=== PATIENT | female | born 1995 | race Caucasian/White ===

== ENCOUNTER 2018-12-09 06:46 | Observation (INO) | payer OTHER ==
[~2018-12-09] VITALS: Ht 177.8 cm; Wt 115.2 kg
[2018-12-09 07:42] LABS: AMPHETAMINE SCREEN, URINE Negative (Negative); BARBITURATE SCREEN, URINE Negative (Negative); BENZODIAZEPINE SCREEN, URINE Negative (Negative); CANNABINOID SCREEN, URINE Negative (Negative); COCAINE SCREEN, URINE Negative (Negative); METHADONE SCREEN, URINE Negative (Negative); OPIATE SCREEN, URINE Negative (Negative)
[2018-12-09 07:44] LABS: BASOPHILS # (AUTO) 0.04 x10^3/uL (0-0.1); BASOPHILS % (AUTO) 0 % (0-1); EOSINOPHILS # (AUTO) 0.25 x10^3/uL (0-0.4); EOSINOPHILS % (AUTO) 2 % (1-7); LYMPHOCYTES # (AUTO) 4.03 x10^3/uL (1-3.4); LYMPHOCYTES % (AUTO) 24 % (22-44); MD NO; MEAN CORPUSCULAR HEMOGLOBIN 25.6 pg (27.0-34.8); MEAN CORPUSCULAR HGB CONC 32.7 g/dL (32.4-35.8); MEAN CORPUSCULAR VOLUME 78.3 fL (80-100); MEAN PLATELET VOLUME 9.5 fL (7.4-10.4); MONOCYTES # (AUTO) 0.94 x10^3/uL (0.2-0.8); MONOCYTES % (AUTO) 6 % (2-9); NEUTROPHILS # (AUTO) 11.24 x10^3/uL (1.8-6.8); NEUTROPHILS % (AUTO) 68 % (42-75); PLATELET COUNT 270 x10^3/uL (130-400); RED BLOOD COUNT 5.39 x10^6/uL (3.82-5.3); RED CELL DISTRIBUTION WIDTH 13.9 % (9.6-15.2)
[2018-12-09 07:53] LABS: ALBUMIN 3.4 g/dL (3.4-5.0); ANION GAP 8 mmol/L (5-15); CALCIUM 8.7 mg/dL (8.5-10.1); CHLORIDE 106 mmol/L (98-107)
[2018-12-09 07:57] LABS: ACETAMINOPHEN < 2 mcg/mL (10-30); ALANINE AMINOTRANSFERASE 25 U/L (12-78); ALKALINE PHOSPHATASE 95 U/L (45-117); BILIRUBIN,TOTAL 0.3 mg/dL (0.2-1.0); CREATININE 0.77 mg/dL (0.55-1.02); SALICYLATE LEVEL < 1.7 mg/dL (2.8-20.0); TOTAL PROTEIN 7.4 g/dL (6.4-8.2)
[2018-12-09 08:19] LABS: MICROSCOPIC NOT IND
--- NOTE | 2018-12-09 08:20 | NUR ---
Pt moved to room 38. Assumed care of pt. Pt stated that she is SI and wants to overdose on medications. She stated that she has done this in the past. Pt is alert, oriented, with NAD. Pt is dressed in a gown. Sitter outside the room.
[2018-12-09 08:24] LABS: CULTURE INDICATED? NO
--- NOTE | 2018-12-09 08:58 | NUR ---
Pt given breakfast tray. Pt is appreciative. Sitter outside the room.
--- NOTE | 2018-12-09 09:56 | NUR ---
PT IS RESTING IN BED WITH EYES CLOSED, RESPIRATIONS EQUAL AND NON LABORED. NAD. SITTER OUTSIDE THE ROOM.
--- NOTE | 2018-12-09 10:11 | NUR ---
Chart faxed to [facility] at this time as patient is on a legal hold and self pay.
--- NOTE | 2018-12-09 10:40 | NUR ---
PT AMBULATED TO THE BATHROOM WITH STEADY GAIT.
--- NOTE | 2018-12-09 10:44 | NUR ---
PT GIVEN WATER TO DRINK. SITTER OUTSIDE THE ROOM.
[2018-12-09 11:08] LABS: FREE T4 (FREE THYROXINE) 0.89 ng/dL (0.76-1.46); THYROID STIMULATING HORMONE 1.72 mIU/L (0.358-3.740)
--- NOTE | 2018-12-09 11:41 | NUR ---
REPORT RECEIVED FROM ALIA WHITAKER. ASSUMED CARE OF PT. PT CURRENTLY DOZING ON BARBARA. NAD NOTED. SKIN PWD. RESP EVEN AND EQAUL. BELONGINGS ARE IN LOCKED LOCKER. GARAGE DOORS DOWN IN ROOM. SITTER AT DOORSIDE. PT DENIES ANY NEEDS AT THIS TIME. WILL CONT TO MONITOR PT.
--- NOTE | 2018-12-09 12:30 | NUR ---
PT CURRENTLY RESTING ON GURNEY. NAD NOTED. SKIN PWD. RESP EVEN AND EQUAL. PT DENIES PAIN/NEEDS. GARAGE DOORS DOWN IN ROOM. SITTER AT BEDSIDE.
--- NOTE | 2018-12-09 13:32 | NUR ---
PT PROVIDED WITH MEAL TRAY. PT ATTEMPTING TO GET [employer]OLD OF FRIEND WHO HAS HER INSURANCE INFORMATION. PT CALM AND COOPERATIVE AT THIS TIME. BELONGINGS IN LOCKED LOCKER. GARAGE DOORS DOWN IN ROOM. SITTER AT DOORSIDE.
[2018-12-09] MEDS ORDERED: LORazepam 1MG TABLET ONE (14:05)
--- NOTE | 2018-12-09 14:10 | NUR ---
PT SPOKE WITH GIRLFRIEND ON THE PHONE AND IS UPSET D/T GIRLFRIEND REPORTING A FINANCIAL ISSUE. PT MEDICATED ORDERED FOR ANXIETY. PT AO X 4. SKIN PWD. RESP EVEN ADN EQAUL. BELONGINGS IN LOCKED LOCKER. CALL LIGHT WITHIN REACH.
[2018-12-09] MEDS ORDERED: LORazepam 1MG TABLET PO PRN (14:30)
[2018-12-09 15:19] VITALS: BP 124/84
[2018-12-09 17:16] VITALS: BP 124/84
[2018-12-09] MEDS ORDERED: LORazepam 1MG TABLET PO ONE (19:00)
[2018-12-09 19:34] VITALS: BP 137/99
[2018-12-09] MEDS: FLUOXETINE HCL 20 MG CAPSULE PO SCH ×2 (21:00→21:32)
[2018-12-09] MEDS: OLANZAPINE 2.5 MG TABLET PO SCH ×2 (21:00→21:32)
[2018-12-10 05:32] LABS: ALANINE AMINOTRANSFERASE 27 U/L (12-78); ALBUMIN 3.6 g/dL (3.4-5.0); ANION GAP 8 mmol/L (5-15); CALCIUM 9.1 mg/dL (8.5-10.1); CHLORIDE 105 mmol/L (98-107); CREATININE 0.81 mg/dL (0.55-1.02)
[2018-12-10 05:34] LABS: MEAN CORPUSCULAR HEMOGLOBIN 26.5 pg (27.0-34.8); MEAN CORPUSCULAR HGB CONC 33.7 g/dL (32.4-35.8); MEAN CORPUSCULAR VOLUME 78.8 fL (80-100); RED BLOOD COUNT 5.48 x10^6/uL (3.82-5.3); RED CELL DISTRIBUTION WIDTH 13.8 % (9.6-15.2)
[2018-12-10 05:35] LABS: ALKALINE PHOSPHATASE 90 U/L (45-117); BILIRUBIN,TOTAL 0.4 mg/dL (0.2-1.0); TOTAL PROTEIN 8.1 g/dL (6.4-8.2)
[2018-12-10 06:38] LABS: MEAN PLATELET VOLUME 9.7 fL (7.4-10.4); PLATELET COUNT 286 x10^3/uL (130-400)
[2018-12-10 06:41] LABS: BASOPHILS # (AUTO) 0.09 x10^3/uL (0-0.1); BASOPHILS % (AUTO) 1 % (0-1); EOSINOPHILS # (AUTO) 0.16 x10^3/uL (0-0.4); EOSINOPHILS % (AUTO) 1 % (1-7); LYMPHOCYTES # (AUTO) 5.95 x10^3/uL (1-3.4); LYMPHOCYTES % (AUTO) 35 % (22-44); MD SCAN; MONOCYTES # (AUTO) 1.04 x10^3/uL (0.2-0.8); MONOCYTES % (AUTO) 6 % (2-9); NEUTROPHILS # (AUTO) 9.85 x10^3/uL (1.8-6.8); NEUTROPHILS % (AUTO) 58 % (42-75)
[2018-12-10] MEDS: OLANZAPINE 2.5 MG TABLET PO SCH ×2 (08:10→21:45)
[2018-12-10 08:32] VITALS: BP 127/83
[2018-12-10] MEDS: ONDANSETRON ODT 4 MG PO PRN (17:31)
[2018-12-10 19:30] VITALS: BP 108/85
[2018-12-10] MEDS: FLUOXETINE HCL 20 MG CAPSULE PO SCH (21:45)
[2018-12-11 08:00] VITALS: BP 142/88
[2018-12-11] MEDS: OLANZAPINE 2.5 MG TABLET PO SCH ×2 (10:02→20:03)
[2018-12-11] MEDS ORDERED: METHOCARBAMOL 500 MG TABLET PO PRN (12:00)
[2018-12-11 19:05] VITALS: BP 130/80
[2018-12-11] MEDS: FLUOXETINE HCL 20 MG CAPSULE PO SCH (20:02)
[2018-12-12 07:18] VITALS: BP 130/85
[2018-12-12] MEDS: OLANZAPINE 2.5 MG TABLET PO SCH ×2 (08:53→20:18)
[2018-12-12 20:02] VITALS: BP 113/73
[2018-12-12] MEDS: FLUOXETINE HCL 20 MG CAPSULE PO SCH (20:17)
[2018-12-13 07:55] VITALS: BP 116/72
[2018-12-13] MEDS: ONDANSETRON ODT 4 MG PO PRN (08:20)
[2018-12-13] MEDS: OLANZAPINE 2.5 MG TABLET PO SCH ×2 (08:57→21:34)
[2018-12-13 19:37] VITALS: BP 121/84
[2018-12-13] MEDS: FLUOXETINE HCL 20 MG CAPSULE PO SCH (21:34)
== END 2018-12-13 21:45 | disposition home or self-care (01) ==
LOC: ED 08:37 → EDIP 08:38 → ED 08:44 → 2N 14:49
PROVIDERS: ADMIT Hospitalist; ATTEND Hospitalist
DX: R45.851 Suicidal ideations (principal); F33.2 Major depressive disorder, recurrent severe without psychotic features; F43.10 Post-traumatic stress disorder, unspecified; F43.21 Adjustment disorder with depressed mood; F90.9 Attention-deficit hyperactivity disorder, unspecified type; D72.829 Elevated white blood cell count, unspecified; Z62.810 Personal history of physical and sexual abuse in childhood; Z80.8 Family history of malignant neoplasm of other organs or systems
CPT/HCPCS: 36415; 71045; 80053; 80307; 80329; 81003; 84439; 84443; 84703; 85025; 99284; G0378; Q0162; G0480